=== PATIENT | female | born 1945 | race Caucasian/White ===

== ENCOUNTER 2019-05-06 08:00 | Day surgery (SDC) | payer BC, MEDICARE ==
[~2019-05-06 08:00] MED LIST: Midazolam 1 MG/ML 2 ML SDV ONE; Propofol 200 MG/20 ML SDV ONE; fentaNYL 100 MCG/2 ML SDV ONE
[2019-05-06] MEDS ORDERED: Lactated Ringers 1,000 ML IV SCH (08:45)
[2019-05-06] MEDS ORDERED: Ondansetron 4 MG/2 ML SDV ONE (09:29)
--- NOTE | 2019-05-06 13:27 | OR ---
DATE OF PROCEDURE: 05/06/2019 PREOPERATIVE DIAGNOSIS: Positive Cologuard. POSTOPERATIVE DIAGNOSES: Unremarkable colonoscopy, positive Cologuard. PROCEDURE: Colonoscopy to the cecum. SURGEON: Jadon Miller MD ANESTHESIA: IV anesthesia with monitored anesthesia care. INDICATION: This 73-year-old white female is referred for a colonoscopy. She has a positive Cologuard. She has never had a colonoscopic exam. I counseled her for the procedure, including risks and alternatives, and she gave her informed consent to proceed. DESCRIPTION OF PROCEDURE: The patient was placed in the left lateral decubitus position. IV anesthesia was administered by the Anesthesia Service. Time-out was held. A rectal exam was performed, which was unremarkable. The flexible video Olympus colonoscope was introduced through her anus, up her rectum and out her colon, all the way to the cecum. Once the cecum was reached, the scope was slowly withdrawn, examining the mucosa throughout. No mucosal abnormalities were noted. The scope was retroflexed in the rectum with the distal rectum appearing unremarkable. The scope was straightened and removed. She tolerated the procedure well. Jadon Miller MD /[id number]
== END 2019-05-06 10:40 | disposition home or self-care (01) ==
LOC: JP.SDS 08:00
PROVIDERS: ATTEND Surgery
DX: R19.5 Other fecal abnormalities (principal); E78.5 Hyperlipidemia, unspecified; M06.9 Rheumatoid arthritis, unspecified
CPT/HCPCS: 45378; J2250; J2405; J2704; J3010; J7120